=== PATIENT | female | born 1955 | race Caucasian/White ===

== ENCOUNTER 2016-11-27 07:02 | Inpatient (IN) | payer OTHER ==
--- NOTE | 2016-11-27 07:21 | ED PDOC ---
HPI: General Adult Time Seen by Provider: 11/27/16 07:09 Chief Complaint (Provider): neck pain History Per: Patient History/Exam Limitations: no limitations Additional Complaint(s): 61yo female comes in for complaint of persistent neck and lower back pain. It has been ongoing but has not been controlled through outpatient care. No abdominal pain, nausea, vomit, diarrhea, incontinence, numbness or tingling. Patient was seen by Dr. Sanchez & Dr. Law and referred here for further evaluation. PMD: Laura Past Medical History Reviewed: Historical Data, Nursing Documentation, Vital Signs Vital Signs: Last Vital Signs Temp 98.0 F 11/27/16 07:10 Pulse 76 11/27/16 07:10 Resp 18 11/27/16 07:10 BP 138/88 11/27/16 07:10 Pulse Ox 96 11/27/16 08:53 - Medical History PMH: HTN, Hypercholesterolemia - Surgical History Other surgeries: thyroidectomy, knee replacement - Family History Family History: States: Unknown Family Hx - Living Arrangements Living Arrangements: With Family - Social History Alcohol: None Drugs: Denies - Home Medications Home Medications: Ambulatory Orders Medication Instructions Recorded Ergocalciferol (Vitamin D2) 50,000 units PO QWK 11/27/16 [Vitamin D2] Levothyroxine [Synthroid] 125 mcg PO DAILY 11/27/16 Metformin ER [Glucophage XR] 500 mg PO BID 11/27/16 Metoprolol Tartrate [Lopressor] 100 mg PO DAILY 11/27/16 Watson-3 Fatty Acids/Fish Oil 1 g PO DAILY 11/27/16 [Watson 3 Fish Oil Softgel] Pantoprazole [Protonix EC Tab] 40 mg PO DAILY 11/27/16 Rosuvastatin Calcium [Crestor] 10 mg PO HS 11/27/16 Topiramate [Topamax] 50 mg PO BID 11/27/16 Valsartan/Hydrochlorothiazide 1 tab PO DAILY 11/27/16 [Valsartan-Hctz 160-12.5 mg Tab] - Allergies Allergies/Adverse Reactions: Allergies Allergy/AdvReac Type Severity Reaction Status Date / Time No Known Allergies Allergy Verified 11/27/16 07:22 Review of Systems ROS Statement: Except As Marked, All Systems Reviewed And Found Negative Gastrointestinal: Negative for: Nausea, Vomiting, Abdominal Pain, Diarrhea Genitourinary Female: Negative for: Incontinence Musculoskeletal: Positive for: Neck Pain, Back Pain Neurological: Negative for: Weakness, Numbness Physical Exam - Reviewed Nursing Documentation Reviewed: Yes Vital Signs Reviewed: Yes - Physical Exam Appears: Positive for: Non-toxic, No Acute Distress Head Exam: Positive for: ATRAUMATIC, NORMAL INSPECTION, NORMOCEPHALIC Skin: Positive for: Warm, Dry Eye Exam: Positive for: EOMI, PERRL Neck: Positive for: Painless ROM (tender on diffuse neck mild; no step off), Supple, Trachea Midline Cardiovascular/Chest: Positive for: Regular Rate, Rhythm Respiratory: Positive for: Normal Breath Sounds. Negative for: Rales, Rhonchi, Wheezing Gastrointestinal/Abdominal: Positive for: Normal Exam, Bowel Sounds, Soft. Negative for: Tenderness Back: Positive for: Other (mild tenderness across lower back). Negative for: L CVA Tenderness, R CVA Tenderness Extremity: Positive for: Normal ROM. Negative for: Tenderness, Pedal Edema, Other (bilateral straight leg raise) Neurologic/Psych: Positive for: Alert, Oriented - Laboratory Results Result Diagrams: 11/27/16 07:54 11/27/16 07:54 Interpretation Of Abn Labs: 3.1 k - ECG ECG: Positive for: Interpreted By Me, Viewed By Me ECG Rhythm: Positive for: Normal QRS, Normal ST Segment, Sinus Rhythm O2 Sat by Pulse Oximetry: 96 (RA) Pulse Ox Interpretation: Normal - Radiology X-Ray: Interpreted by Me, Viewed By Me X-Ray Interpretation: No Acute Disease - Progress ED Course And Treament: 0707: EKG, CXR, Labs, IV Fluids, Toradol ordered. Will discuss with Dr. Sanchez PMD. 0709: Case discussed with Dr. Sanchez PMD who accepts patient. 0742: Case discussed with Dr. Law who requests MRI neck. 757: Stable. Spoke with Dr. Sanchez. Will admit to his service for for further evaluation and treatment. Spoke with Dr. Law. Will consult on pt. Pain controlled. Dr. Law wants mri of cervical. Dr. Sanchez will give further orders when pt. reaches floor. Disposition - Clinical Impression Clinical Impression: Neck pain, Back pain, Hypokalemia - Patient ED Disposition Is Patient to be Admitted: Yes Counseled Patient/Family Regarding: Studies Performed, Diagnosis - Disposition Disposition Time: 07:09 Condition: STABLE - Pt Status Changed To: Hospital Disposition Of: Inpatient - Admit Certification Admit to Inpatient:: After my assessment, the patient will require hospitalization for at least two midnights. This is because of the severity of symptoms shown, intensity of services needed, and/or the medical risk in this patient being treated as an outpatient. - POA Present On Arrival: None Additional Comments - Additional Comments Additional Comments: Documented by Man Worthy acting as a scribe for Blair Robles MD. All medical record entries made by the Scribe were at my direction and personally dictated by me. I have reviewed the chart and agree that the record accurately reflects my personal performance of the history, physical exam, medical decision making, and the department course for this patient. I have also personally directed, reviewed, and agree with the discharge instructions and disposition.
[2016-11-27] MEDS ORDERED: Sodium Chloride 0.9% 500 ML IV STA (07:23)
[2016-11-27 08:10] LABS: BASO % 0.5 % (0.0-2.0); EOS # 0.3 K/uL (0.0-0.7); LYMPH # 2.8 K/uL (1.0-4.3); LYMPH % 40.3 % (20.0-40.0); MEAN CELL VOLUME 88.4 fl (81.0-99.0); MEAN CORPUSCULAR HEMOGLOBIN 31.1 pg (27.0-31.0); MEAN CORPUSCULAR HGB CONC 35.1 g/dL (33.0-37.0); MONO # 0.5 K/uL (0.0-0.8); MONO % 7.1 % (0.0-10.0); NEUT # 3.3 K/uL (1.8-7.0); NEUT % 48.1 % (50.0-75.0); RED CELL DISTRIBUTION WIDTH 12.4 % (11.5-14.5); WHITE BLOOD COUNT 6.8 K/uL (4.8-10.8)
[2016-11-27 08:13] LABS: ALB/GLOB RATIO 1.1 (1.0-2.1); ALKALINE PHOSPHATASE 46 U/L (38-126); ALT/SGPT 24 U/L (9-52); AST/SGOT 24 U/L (14-36); BILIRUBIN,TOTAL 0.5 mg/dl (0.2-1.3); BLOOD UREA NITROGEN 18 mg/dl (7-17); CALCIUM 8.9 mg/dL (8.4-10.2); CARBON DIOXIDE 25 mmol/L (22-30); CHLORIDE 101 mmol/L (98-107); GFR AFRICAN-AMERICAN > 60; GLUCOSE,RANDOM 203 mg/dL (65-105); POTASSIUM 3.1 MMOL/L (3.6-5.0); SODIUM 143 mmol/l (132-148); TOTAL PROTEIN 7.4 G/DL (6.3-8.2)
[2016-11-27] MEDS ORDERED: Potassium Chloride 20 mEq ER Tab PO STA (08:59)
--- NOTE | 2016-11-27 10:01 | MRI ---
PROCEDURE: MR CERVICAL SPINE WITHOUT CONTRAST HISTORY: neck pain COMPARISON: None available. TECHNIQUE: Multiecho multiplanar sequences were performed through the cervical spine without the use of intravenous contrast. FINDINGS: Normal lordotic curvature. Craniocervical junction unremarkable. Vertebral body heights preserved. No marrow signal abnormality. There are moderate degenerative disc changes and cervical spine spondylosis more prominent at C3-C4 and C4-C5. Multilevel osteophyte disc bulging/herniation complex seen at the cervical spine. Normal cervical cord. No paraspinal abnormality. C2-C3: No disc herniation, spinal canal stenosis or neural foraminal narrowing. C3-C4: There is a small right paracentral osteophyte disc bulging complex associated with mild spinal and cgab-vf-[id number] right neural foraminal narrowing. C4-C5: Small osteophyte disc bulging complex associated with mild posterior ligament hypertrophy which resulting in mild spinal and ldwc-zq-sbisseaf bilateral neural foraminal narrowing. C5-C6: Xcao-br-pnxrwqkw narrowing of the intervertebral disc space. Osteophyte disc bulging complex associated with posterior ligament and facet joint hypertrophy which resulting in oril-on-efemgjcw spinal and moderate bilateral neural foraminal narrowing right more than left. C6-C7: Small osteophyte disc bulging complex associated with mild posterior ligament hypertrophy which resulting in mild spinal and right neural foraminal narrowing. Subz-rv-diakvxhi left neural foraminal narrowing also seen. C7-T1: No disc herniation, spinal canal stenosis or neural foraminal narrowing. OTHER FINDINGS: None. IMPRESSION: Moderate degenerative disc changes and cervical spine spondylosis more prominent at C4-C5 and C5-C6. Multilevel osteophyte disc bulging complex associated with posterior ligament hypertrophy which resulting in spinal and neural foramina stenosis more prominent at C5-C6 as described. No evidence of cervical cord compression. No evidence of acute fracture or subluxation.
[2016-11-27] MEDS ORDERED: Ergocalciferol 50,000 Intl Units Cap PO SCH (10:45)
[2016-11-27 11:35] VITALS: BMI 39.4
[2016-11-27] MEDS: Potassium Chloride 20 mEq ER Tab PO SCH (12:18)
[2016-11-27 12:34] LABS: PARTIAL THROMBOPLASTIN TIME 23.8 SECONDS (23.3-32.5)
--- NOTE | 2016-11-27 13:17 | CP.PCM.HP ---
History of Present Illness - History of Present Illness History of Present Illness: Pt is a 61y/o female presenting to ed wit complaints of lower back pain and neck pain. states her PCP and her neurosurgeon have already evaluated her and sent her to ED for further management. this is a chronic issue that has not been controlled through outpatient care. No abdominal pain, nausea, vomit, diarrhea, incontinence, numbness or tingling. Present on Admission - Present on Admission Any Indicators Present on Admission: No Review of Systems - Review of Systems All systems: reviewed and no additional remarkable complaints except Review of Systems: per HPI Past Patient History - Past Medical History & Family History Past Medical History?: Yes - Past Social History Smoking Status: Never Smoked - CARDIAC Hx Cardiac Disorders: No - PULMONARY Hx Respiratory Disorders: No - NEUROLOGICAL Hx Neurological Disorder: No - HEENT Hx HEENT Problems: No - RENAL Hx Chronic Kidney Disease: No - ENDOCRINE/METABOLIC Hx Endocrine Disorders: Yes Other/Comment: borderline DM - HEMATOLOGICAL/ONCOLOGICAL Hx Blood Disorders: No - INTEGUMENTARY Hx Dermatological Problems: No - MUSCULOSKELETAL/RHEUMATOLOGICAL Hx Musculoskeletal Disorders: Yes Hx Back Pain: Yes Hx Falls: No Other/Comment: 2 shoulder surgeries and lumbar laminectomy with fusion - GASTROINTESTINAL Hx Gastrointestinal Disorders: Yes Hx Bowel Surgery: Yes Other/Comment: bowel resection - GENITOURINARY/GYNECOLOGICAL Hx Genitourinary Disorders: Yes - PSYCHIATRIC Hx Substance Use: No - SURGICAL HISTORY Hx Surgeries: Yes Hx Section: Yes Hx Cholecystectomy: Yes Hx Joint Replacement: Yes (left knee total replacement) Hx Thyroidectomy: Yes - ANESTHESIA Hx Anesthesia: Yes Hx Anesthesia Reactions: Yes Hx Malignant Hyperthermia: No Meds Allergies/Adverse Reactions: Allergies Allergy/AdvReac Type Severity Reaction Status Date / Time No Known Allergies Allergy Verified 11/27/16 11:33 Physical Exam - Constitutional Appears: Non-toxic, No Acute Distress - Head Exam Head Exam: NORMOCEPHALIC - Eye Exam Eye Exam: Normal appearance, PERRL Pupil Exam: NORMAL ACCOMODATION - ENT Exam ENT Exam: Mucous Membranes Moist - Neck Exam Additional comments: tenderness on palpation bilaterally, no step offs. ROM limited due to pain - Respiratory Exam Respiratory Exam: Clear to Auscultation Bilateral, NORMAL BREATHING PATTERN. absent: Rhonchi, Wheezes - Cardiovascular Exam Cardiovascular Exam: REGULAR RHYTHM, +S1, +S2 - GI/Abdominal Exam GI & Abdominal Exam: Normal Bowel Sounds, Soft. absent: Tenderness - Extremities Exam Extremities exam: Negative for: calf tenderness, pedal edema - Back Exam Back exam: muscle spasm, tenderness - Neurological Exam Neurological exam: Alert, CN II-XII Intact, Oriented x3 Results - Vital Signs Recent Vital Signs: Last Vital Signs Temp 98.0 F 11/27/16 09:24 Pulse 64 11/27/16 09:30 Resp 20 11/27/16 09:30 BP 138/88 11/27/16 09:24 Pulse Ox 96 11/27/16 09:00 - Labs Result Diagrams: 11/27/16 07:54 11/27/16 07:54 Labs: Laboratory Results - last 24 hr 11/27/16 11/27/16 07:54 11:30 WBC 6.8 RBC 4.41 Hgb 13.7 Hct 39.0 MCV 88.4 MCH 31.1 H MCHC 35.1 RDW 12.4 Plt Count 244 MPV 8.0 Neut % (Auto) 48.1 L Lymph % (Auto) 40.3 H [place] % (Auto) 7.1 Eos % (Auto) 4.0 Baso % (Auto) 0.5 Neut # 3.3 Lymph # 2.8 [place] # 0.5 Eos # 0.3 Baso # 0.0 PT 10.4 INR 1.00 APTT 23.8 Sodium 143 Potassium 3.1 L Chloride 101 Carbon Dioxide 25 Anion Gap 20 BUN 18 H Creatinine 0.6 L Est GFR ( Amer) > 60 Est GFR (Non-Af Amer) > 60 Random Glucose 203 H Calcium 8.9 Total Bilirubin 0.5 AST 24 ALT 24 Alkaline Phosphatase 46 Troponin I < 0.0120 Total Protein 7.4 Albumin 3.9 Globulin 3.4 Albumin/Globulin Ratio 1.1 Blood Type A POSITIVE Antibody Screen Negative BBK History Checked No verified bt Assessment & Plan - Assessment and Plan (Free Text) Assessment: Pt is a 61 y/o non insulin dependent type II diabetic, hypertensive, hypercholestelemia and hypothyroidism admitted for cervical spondylosis and lower back pain Plan: Cervical Spondylosis of c3-c4 and c4-c5 MRI- shows evidence of spondylosis and disc bulging Dr. Law made aware pt has been admitted, following pain managment as ordered Possible OR in the AM 2. lower back pain no associated radiculopathy pain managment as ordered Physical therapy after cervical surgery 3. Type II non insulin dependent diabetes Metformin accuchecks ssi as needed Hypokalemia received 40meg in ED and 20 on floor BMP ordered for am monitor 4. all home meds resumed 5. diet- hearty healthy now, NPO at midnight 6. DVt prophylaxis- SCDS
--- NOTE | 2016-11-27 14:08 | CARD ---
APPROVED REPORT EKG Measurement Heart [id number] <Conclusion> Sinus rhythm with 1st degree AV block Otherwise normal ECG
--- NOTE | 2016-11-27 14:21 | RAD ---
HISTORY: Dyspnea. Technique: Single view portable erect @ 07:35 COMPARISON: Send 03/30/2014. FINDINGS: LUNGS: No active pulmonary disease. PLEURA: No significant pleural effusion identified, no pneumothorax apparent. CARDIOVASCULAR: No radiographic findings to suggest acute or significant cardiovascular disease. OSSEOUS STRUCTURES: No significant abnormalities. VISUALIZED UPPER ABDOMEN: Normal. OTHER FINDINGS: None. IMPRESSION: No active disease. No significant interval change compared to the prior examination(s).
[2016-11-27] MEDS ORDERED: Dextrose 50% SYRINGE Inj (50 ml) IV PRN (14:30)
[2016-11-27] MEDS ORDERED: Glucagon Recombinant 1 mg Inj IM PRN (14:30)
[2016-11-27] MEDS: Insulin Regular 100 units/ml SC SCH ×2 (18:13→22:20)
[2016-11-28] MEDS ORDERED: Propofol 10 mg/ml Inj (20 ML) ONE ×2 (07:00→08:21)
[2016-11-28] MEDS ORDERED: Midazolam 2 MG/2 ML VIAL ONE (07:01)
[2016-11-28] MEDS ORDERED: ePHEDrine 50 mg/ml Inj ONE (07:01)
[2016-11-28] MEDS ORDERED: Phenylephrine 10 mg/ml Inj ONE (07:02)
[2016-11-28] MEDS ORDERED: Rocuronium 10 mg/ml (5 ml) ONE (07:02)
[2016-11-28] MEDS ORDERED: Succinylcholine 200 mg/10 ml Inj IV ONE (07:02)
[2016-11-28] MEDS ORDERED: Thrombin Topical 5,000 IU Spray Kit ONE (07:05)
[2016-11-28] MEDS ORDERED: Absorbable Gelatin Sponge Size 12-7 ONE (07:05)
--- NOTE | 2016-11-28 07:39 | CP.PCM.CON ---
History of Present Illness - History of Present Illness History of Present Illness: asked to see this 61 yo left hand dominant female pt with intractable neckpain ,ongoing x 7 years s/p slip and fall on ice, worsening symptoms with BUE radiation and paresthesias,dropping objects,no relief with pain meds or conservative management,outpt w/u showing cervical spondylosis and HNP,hx lumbar laminectomy and fusion in past with resolution of symptoms,surgical and non surgical options discussed with pt and Dr. Law,denies recent fall or trauma ,bowel/bladder incontinance or pelvic paresthesias. Review of Systems - Review of Systems Systems not reviewed;Unavailable: Acuity of Condition - Cardiovascular Additional comments: Hx Htn and HLD,denies PR or CP - Musculoskeletal Musculoskeletal: Neck Pain, Numbness, Radiating Pain into Limb, Tingling - Integumentary Additional comments: healed surgical scar - Neurological Neurological: As Per HPI - Endocrine Additional Comments: hx thyroidectomy Past Patient History - Infectious Disease Hx of Infectious Diseases: None - Tetanus Immunizations Tetanus Immunization: Unknown - Past Medical History & Family History Past Medical History?: Yes - Past Social History Smoking Status: Never Smoked Chewing Tobacco Use: No Cigar Use: No 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 Alcohol: Occasional Drugs: Denies Home Situation {Lives}: With Family Domestic Violence: Negative - CARDIAC Hx Cardiac Disorders: No - PULMONARY Hx Respiratory Disorders: No - NEUROLOGICAL Hx Neurological Disorder: No - HEENT Hx HEENT Problems: No - RENAL Hx Chronic Kidney Disease: No - ENDOCRINE/METABOLIC Hx Endocrine Disorders: Yes Other/Comment: borderline DM - HEMATOLOGICAL/ONCOLOGICAL Hx Blood Disorders: No - INTEGUMENTARY Hx Dermatological Problems: No - MUSCULOSKELETAL/RHEUMATOLOGICAL Hx Musculoskeletal Disorders: Yes Hx Back Pain: Yes Hx Falls: No Other/Comment: 2 shoulder surgeries and lumbar laminectomy with fusion - GASTROINTESTINAL Hx Gastrointestinal Disorders: Yes Hx Bowel Surgery: Yes Other/Comment: bowel resection - GENITOURINARY/GYNECOLOGICAL Hx Genitourinary Disorders: Yes - PSYCHIATRIC Hx Substance Use: No - SURGICAL HISTORY Hx Surgeries: Yes Hx Section: Yes Hx Cholecystectomy: Yes Hx Joint Replacement: Yes (left knee total replacement) Hx Thyroidectomy: Yes - ANESTHESIA Hx Anesthesia: Yes Hx Anesthesia Reactions: Yes Hx Malignant Hyperthermia: No Meds Allergies/Adverse Reactions: Allergies Allergy/AdvReac Type Severity Reaction Status Date / Time No Known Allergies Allergy Verified 11/27/16 11:33 - Medications Medications: Current Medications Atorvastatin Calcium (Lipitor) 20 mg PO HS [facility] Last Admin: 11/27/16 21:48 Dose: 20 mg Dextrose (Glutose 15) 0 gm PO ONCE PRN; Protocol PRN Reason: Hypoglycemia Protocol Dextrose (Dextrose 50% Inj) 0 ml IV STAT PRN; Protocol PRN Reason: Hyglycemia Protocol Ergocalciferol (Drisdol 50,000 Intl Units Cap) 1 cap PO Tu [facility] Last Admin: 11/27/16 12:18 Dose: 1 cap Glucagon (Glucagen Diagnostic Kit) 0 mg IM STAT PRN; Protocol PRN Reason: Hypoglycemia Protocol Hydrochlorothiazide (Microzide) 12.5 mg PO DAILY [facility] Insulin Human Regular (Humulin R) 0 units SC ACHS [facility] PRN Reason: Protocol Last Admin: 11/27/16 22:20 Dose: Not Given Ketorolac Tromethamine (Toradol) 10 mg PO Q6 PRN PRN Reason: Pain, Mild (1-3) Levothyroxine Sodium (Synthroid) 125 mcg PO 0630 [facility] Metformin HCl (Glucophage) 500 mg PO BIDWM [facility] Last Admin: 11/27/16 17:05 Dose: 500 mg Metoprolol Tartrate (Lopressor) 100 mg PO DAILY [facility] Eazsg-7-[id number] Ethyl Esters (Lovaza) 1 gm PO DAILY [facility] Oxycodone/Acetaminophen (Percocet 5/325 Mg Tab) 2 tab PO Q6 PRN PRN Reason: Pain, severe (8-10) Stop: 11/30/16 13:16 Oxycodone/Acetaminophen (Percocet 5/325 Mg Tab) 1 tab PO Q4 PRN PRN Reason: Pain, moderate (4-7) Stop: 11/30/16 13:16 Pantoprazole Sodium (Protonix Ec Tab) 40 mg PO DAILY [facility] Potassium Chloride (K-Dur 20 Meq Er Tab) 20 meq PO DAILY [facility] Last Admin: 11/27/16 12:18 Dose: 20 meq Topiramate (Topamax) 50 mg PO BID [facility] Last Admin: 11/27/16 17:06 Dose: 50 mg Valsartan (Diovan) 160 mg PO DAILY [facility] Physical Exam - Constitutional Appears: Well, Non-toxic, No Acute Distress - Head Exam Head Exam: ATRAUMATIC, NORMAL INSPECTION, NORMOCEPHALIC - Eye Exam Eye Exam: EOMI, Normal appearance, PERRL Pupil Exam: NORMAL ACCOMODATION - ENT Exam ENT Exam: Mucous Membranes Moist - Neck Exam Neck exam: Positive for: Tenderness - Respiratory Exam Respiratory Exam: Clear to Auscultation Bilateral - Cardiovascular Exam Cardiovascular Exam: REGULAR RHYTHM, +S1, +S2 - GI/Abdominal Exam GI & Abdominal Exam: Normal Bowel Sounds, Soft - Rectal Exam Rectal Exam: Deferred - Extremities Exam Extremities exam: Positive for: normal inspection, pedal pulses present - Back Exam Back exam: NORMAL INSPECTION - Neurological Exam Neurological exam: Alert, Oriented x3 Additional comments: [place] x 4 antigravity with deltoid,tricep and bicep weakness >left with paresthesias,+ 2 DTR's - Psychiatric Exam Psychiatric exam: Normal Affect, Normal Mood - Skin Skin Exam: Dry, Intact Results - Vital Signs Recent Vital Signs: Last Vital Signs Temp 97.8 F 11/28/16 05:00 Pulse 67 11/28/16 05:00 Resp 20 11/28/16 05:00 BP 119/74 11/28/16 05:00 Pulse Ox 97 11/28/16 05:00 - Labs Result Diagrams: 11/27/16 07:54 11/27/16 07:54 Labs: Laboratory Results - last 24 hr 11/27/16 11/27/16 11/27/16 07:54 11:30 15:15 WBC 6.8 RBC 4.41 Hgb 13.7 Hct 39.0 MCV 88.4 MCH 31.1 H MCHC 35.1 RDW 12.4 Plt Count 244 MPV 8.0 Neut % (Auto) 48.1 L Lymph % (Auto) 40.3 H [place] % (Auto) 7.1 Eos % (Auto) 4.0 Baso % (Auto) 0.5 Neut # 3.3 Lymph # 2.8 [place] # 0.5 Eos # 0.3 Baso # 0.0 PT 10.4 INR 1.00 APTT 23.8 Sodium 143 Potassium 3.1 L Chloride 101 Carbon Dioxide 25 Anion Gap 20 BUN 18 H Creatinine 0.6 L Est GFR ( Amer) > 60 Est GFR (Non-Af Amer) > 60 POC Glucose (mg/dL) Random Glucose 203 H Calcium 8.9 Total Bilirubin 0.5 AST 24 ALT 24 Alkaline Phosphatase 46 Troponin I < 0.0120 Total Protein 7.4 Albumin 3.9 Globulin 3.4 Albumin/Globulin Ratio 1.1 Blood Type A POSITIVE Blood Type Confirm A POSITIVE Antibody Screen Negative BBK History Checked No verified bt 11/27/16 11/27/16 11/28/16 16:34 21:33 06:56 WBC RBC Hgb Hct MCV MCH MCHC RDW Plt Count MPV Neut % (Auto) Lymph % (Auto) [place] % (Auto) Eos % (Auto) Baso % (Auto) Neut # Lymph # [place] # Eos # Baso # PT INR APTT Sodium Potassium Chloride Carbon Dioxide Anion Gap BUN Creatinine Est GFR ( Amer) Est GFR (Non-Af Amer) POC Glucose (mg/dL) 149 H 87 115 H Random Glucose Calcium Total Bilirubin AST ALT Alkaline Phosphatase Troponin I Total Protein Albumin Globulin Albumin/Globulin Ratio Blood Type Blood Type Confirm Antibody Screen BBK History Checked - Impressions Impression: images reviewed by Assessment & Plan - Assessment and Plan (Free Text) Assessment: 61 yo female with cervical spondylosis/HNP and myelopathy. Plan: again surgical and non surgical options discussed with pt,due to worsening symptoms and intractable pain,pt wishes to proceed with a proposed ACDF C4-5,C5- [address] Law,risks and benefits of surgery discussed with pt,expressed understanding and wishes to proceed.
[2016-11-28] MEDS ORDERED: Lactated Ringer's 1,000 ML IV ONE ×2 (07:50→08:00)
[2016-11-28] MEDS ORDERED: HEMOSTATIC MATRIX 10 ML DIS.NEEDLE TOP ONE ×2 (08:40→08:45)
[2016-11-28] MEDS ORDERED: Neostigmine Methylsulfate 2 MG/2 ML ML IV ONE (08:46)
[2016-11-28] MEDS ORDERED: Neostigmine Methylsulfate 3mg/3ml Syringe IV ONE (08:46)
[2016-11-28] MEDS ORDERED: Sodium Chloride 0.9% 1,000 ML IV ONE (09:27)
[2016-11-28] MEDS ORDERED: HYDROmorphone 0.5 mg/0.5 ml ISec ONE (09:33)
[2016-11-28] MEDS ORDERED: DiphenhydrAMINE 50 mg/ml Inj IVP PRN (09:34)
[2016-11-28] MEDS ORDERED: HYDROmorphone 0.5 mg/0.5 ml ISec IVP PRN (09:34)
--- NOTE | 2016-11-28 11:06 | CP.PCM.PN ---
Subjective - Date & Time of Evaluation Date of Evaluation: 11/28/16 Time of Evaluation: 10:35 - Subjective Subjective: pt seen and examined today at PACU with Dr. Sanchez, pt does not have any complaints, pain is controlled. doing well post surgery Objective - Vital Signs/Intake and Output Vital Signs (last 24 hours): Temp Pulse Resp BP Pulse Ox 97.8 F 67 20 119/74 97 11/28/16 05:00 11/28/16 05:00 11/28/16 05:00 11/28/16 05:00 11/28/16 05:00 Intake and Output: 11/28/16 11/28/16 06:59 18:59 Intake Total 1200 Balance 1200 - Medications Medications: Current Medications Atorvastatin Calcium (Lipitor) 20 mg PO HS [facility] Last Admin: 11/27/16 21:48 Dose: 20 mg Cyclobenzaprine HCl (Flexeril) 10 mg PO TID PRN PRN Reason: Muscle spasm Dextrose (Glutose 15) 0 gm PO ONCE PRN; Protocol PRN Reason: Hypoglycemia Protocol Dextrose (Dextrose 50% Inj) 0 ml IV STAT PRN; Protocol PRN Reason: Hyglycemia Protocol Diphenhydramine HCl (Benadryl) 25 mg IVP Q6 PRN PRN Reason: Itching / Pruritus Stop: 11/28/16 11:35 Ergocalciferol (Drisdol 50,000 Intl Units Cap) 1 cap PO Tu [facility] Last Admin: 11/27/16 12:18 Dose: 1 cap Glucagon (Glucagen Diagnostic Kit) 0 mg IM STAT PRN; Protocol PRN Reason: Hypoglycemia Protocol Hydrochlorothiazide (Microzide) 12.5 mg PO DAILY [facility] Hydromorphone HCl (Dilaudid) 0.5 mg IVP Q10M PRN PRN Reason: Pain, severe (8-10) Stop: 11/28/16 11:35 Cefazolin Sodium 1 gm/ Sodium (Chloride) 100 mls @ 100 mls/hr IVPB Q12 [facility] Insulin Human Regular (Humulin R) 0 units SC ACHS INOCENCIA PRN Reason: Protocol Last Admin: 11/27/16 22:20 Dose: Not Given Ketorolac Tromethamine (Toradol) 10 mg PO Q6 PRN PRN Reason: Pain, Mild (1-3) Levothyroxine Sodium (Synthroid) 125 mcg PO 0630 [facility] Metformin HCl (Glucophage) 500 mg PO BIDWM [facility] Last Admin: 11/27/16 17:05 Dose: 500 mg Metoprolol Tartrate (Lopressor) 100 mg PO DAILY [facility] Orkmp-0-Xrac Ethyl Esters (Lovaza) 1 gm PO DAILY [facility] Ondansetron HCl (Zofran Inj) 4 mg IVP ONCE PRN PRN Reason: Nausea/Vomiting Stop: 11/28/16 11:35 Oxycodone/Acetaminophen (Percocet 5/325 Mg Tab) 2 tab PO Q6 PRN PRN Reason: Pain, severe (8-10) Stop: 11/30/16 13:16 Oxycodone/Acetaminophen (Percocet 5/325 Mg Tab) 1 tab PO Q4 PRN PRN Reason: Pain, moderate (4-7) Stop: 11/30/16 13:16 Pantoprazole Sodium (Protonix Ec Tab) 40 mg PO DAILY [facility] Potassium Chloride (K-Dur 20 Meq Er Tab) 20 meq PO DAILY [facility] Last Admin: 11/27/16 12:18 Dose: 20 meq Topiramate (Topamax) 50 mg PO BID [facility] Last Admin: 11/27/16 17:06 Dose: 50 mg Valsartan (Diovan) 160 mg PO DAILY [facility] - Labs Labs: 11/27/16 07:54 11/27/16 07:54 PT 10.4 SECONDS (9.6-11.2) 11/27/16 11:30 INR 1.00 (0.92-1.08) 11/27/16 11:30 APTT 23.8 SECONDS (23.3-32.5) 11/27/16 11:30 - Constitutional Appears: Non-toxic, No Acute Distress - Head Exam Head Exam: NORMOCEPHALIC - Eye Exam Eye Exam: Normal appearance Pupil Exam: NORMAL ACCOMODATION - ENT Exam ENT Exam: Mucous Membranes Moist - Neck Exam Additional comments: drains noted, neck in collar - Respiratory Exam Respiratory Exam: Clear to Ausculation Bilateral, NORMAL BREATHING PATTERN. absent: Rhonchi, Wheezes - Cardiovascular Exam Cardiovascular Exam: REGULAR RHYTHM, +S1, +S2 - GI/Abdominal Exam GI & Abdominal Exam: Soft, Normal Bowel Sounds. absent: Tenderness - Extremities Exam Extremities Exam: absent: Calf Tenderness, Pedal Edema - Neurological Exam Neurological Exam: Alert, Awake, CN II-XII Intact, Oriented x3 Assessment and Plan - Assessment and Plan (Free Text) Assessment: Pt is a 61 y/o non insulin dependent type II diabetic, hypertensive, hypercholestelemia and hypothyroidism admitted for cervical spondylosis and lower back pain Plan: Cervical Spondylosis of c3-c4 and c4-c5 MRI- shows evidence of spondylosis and disc bulging Dr. Law made aware pt has been admitted, following pain managment as ordered Possible OR in the AM 2. lower back pain no associated radiculopathy pain managment as ordered Physical therapy after cervical surgery 3. Type II non insulin dependent diabetes Metformin accuchecks ssi as needed Hypokalemia received 40meg in ED and 20 on floor BMP ordered for am monitor 4. all home meds resumed 5. diet- hearty healthy now, NPO at midnight 6. DVt prophylaxis- SCDS Plan: Cervical Spondylosis s/p ACDF of c3-c4 and c4-c5 POD#0 pain managment as ordered Ancef Q12 Steriod taper PT eval and treat 2. lower back pain no associated radiculopathy pain managment as ordered Physical therapy after cervical surgery 3. Type II non insulin dependent diabetes Metformin accuchecks ssi as needed Hypokalemia received 40meg in ED and 20 on floor BMP ordered for am monitor 4. all home meds resumed 5. diet- clear liquid for lunch, will progress as tolerated 6. DVt prophylaxis- SCDS, lovenox to start in the AM
[2016-11-28] MEDS ORDERED: Lactated Ringer's 1,000 ML IV SCH (15:45)
[2016-11-28] MEDS: Oxycodone/Acetaminophen 5/325 mg Tab PO PRN ×2 (17:54→23:33)
[2016-11-28] MEDS: Insulin Regular 100 units/ml SC SCH ×2 (18:58→22:00)
[2016-11-28] MEDS ORDERED: Pneumococcal 23-Valent Vaccine IM ONE (19:30)
[2016-11-28] MEDS: Benzocaine/Menthol (Cepacol) Lozenge PO PRN (20:59)
[2016-11-28] MEDS: ceFAZolin 1 GM in Sodium Chloride 0.9% 100 ML IVPB SCH (21:00)
[2016-11-29] MEDS: Levothyroxine 125 MCG TAB PO SCH (05:46)
[2016-11-29] MEDS: Oxycodone/Acetaminophen 5/325 mg Tab PO PRN ×3 (05:59→21:03)
[2016-11-29] MEDS: Insulin Regular 100 units/ml SC SCH ×4 (06:42→22:00)
[2016-11-29 07:52] LABS: BASO % 0.5 % (0.0-2.0); EOS # 0.3 K/uL (0.0-0.7); EOS % 2.8 % (0.0-4.0); HEMATOCRIT 36.9 % (34.0-47.0); LYMPH % 21.6 % (20.0-40.0); MEAN CELL VOLUME 90.3 fl (81.0-99.0); MEAN CORPUSCULAR HEMOGLOBIN 30.9 pg (27.0-31.0); MEAN CORPUSCULAR HGB CONC 34.2 g/dL (33.0-37.0); MONO # 0.7 K/uL (0.0-0.8); MONO % 7.9 % (0.0-10.0); NEUT # 6.2 K/uL (1.8-7.0); NEUT % 67.2 % (50.0-75.0); RED CELL DISTRIBUTION WIDTH 12.2 % (11.5-14.5); WHITE BLOOD COUNT 9.2 K/uL (4.8-10.8)
[2016-11-29 08:53] LABS: BLOOD UREA NITROGEN 11 mg/dl (7-17); CALCIUM 8.4 mg/dL (8.4-10.2); CARBON DIOXIDE 27 mmol/L (22-30); CHLORIDE 105 mmol/L (98-107); GFR AFRICAN-AMERICAN > 60; GLUCOSE,RANDOM 123 mg/dL (65-105); POTASSIUM 3.4 MMOL/L (3.6-5.0); SODIUM 142 mmol/l (132-148)
[2016-11-29] MEDS: Benzocaine/Menthol (Cepacol) Lozenge PO PRN ×3 (09:03→16:54)
--- NOTE | 2016-11-29 09:05 | OP ---
PROCEDURE DATE: 11/28/2016 PREOPERATIVE DIAGNOSIS: Cervical disk herniation and spondylosis at C4-C5, C5- C6. POSTOPERATIVE DIAGNOSES: Cervical disk herniation and spondylosis at C4-C5, C5- C6. PROCEDURE: Partial vertebrectomy of C4, C5 and C6; diskectomy of C4-C5, C5-C6; interbody fusion of C4-C5, C5-C6 using PEEK and bone; plating and instrumentation C4-C6 using an Amendia plate. Fluoroscopy has been used for the procedure. SURGEON: Dr. Law. BLACKSMITH ASSISTANT: RICHARD Fischer. Giovana Baldwin stayed throughout the case from the beginning to the end, helped me perform the surgery. DESCRIPTION OF PROCEDURE: The patient was brought to the operating room, administered general endotracheal anesthesia, placed in a supine position. Head was placed on a donut. Care was taken to protect all the pressure points. Right side of the neck was thoroughly prepped and draped in standard sterile manner after marking the skin incision for cervical vertebrectomy. After prepping and draping the area, horizontal skin incision in neck creases has been made. Bleeding skin edges have been controlled by bipolar sales engagement executive. Using a Bovie sales engagement executive, platysma has been cut. Dissection has been carried out at trachea and esophagus medially, sternomastoid carried out laterally. Prevertebral fascia has been cauterized and cut. Identification has been done with help of a fluoroscopy. Longus colli has been detached at attachment of vertebral bodies of C4, C5 and 6. Danek retractors have been applied. Rest of the operation had been carried out with microscope magnification and illumination. PARTIAL VERTEBRECTOMY OF C4, 5 AND 6; DISKECTOMY OF C4-C5, C5-C6: By using high -speed drill, the vertebral bodies of C4 and C5 have been drilled. Partial vertebrectomy, including removal of half of the vertebral body has been done. diskectomy has been performed. The disk material has been removed. There was an osteophyte noted that has been drilled. Posterior longitudinal ligament has been opened. Dura has been decompressed from side to side. At C5-6, the partial vertebrectomy, including removal of cartilage and plates, half of the vertebral body has been performed. Diskectomy was performed. There a herniated disk noted that has been removed. Posterior longitudinal ligament has been opened. Dura has been decompressed from side to side. INTERBODY FUSION OF C4-C5, C5-C6 USING PEEK AND BONE: Two pieces of PEEK implant have been brought in, filled with the demineralized bone. They have been gently tapped in the space created by the partial vertebrectomy at C4-C5, C5-C6. Position has been confirmed to be good. PLATING AND INSTRUMENTATION OF C4-C6 USING AMENDIA PLATE: An Amendia plate has been placed in vertebral bodies of C4-C6. By using 12 mm screw, it has been secured under fluoroscopic guided control. Position has been confirmed good. After that, hemostasis best achieved. Aime drain placed in the wound, brought out through separate stab skin incision. Platysma closed with 3-0 Vicryl, skin with intradermal 3-0 Vicryl stitches. The patient tolerated the procedure. After procedure, mobilized to the recovery room in stable neurologic condition. Wang Law MD cc: [phone] TT: 11/29/2016 09:05:13 kathryn CALLOWAY
[2016-11-29] MEDS: Pantoprazole 40 mg EC Tab PO SCH (09:08)
[2016-11-29] MEDS: Omega-3-Acid Ethyl Esters 1 GM Cap PO SCH (09:09)
[2016-11-29] MEDS: Potassium Chloride 20 mEq ER Tab PO SCH (09:10)
[2016-11-29] MEDS: ceFAZolin 1 GM in Sodium Chloride 0.9% 100 ML IVPB SCH ×2 (09:25→21:09)
--- NOTE | 2016-11-29 11:40 | CP.PCM.PN ---
Subjective - Date & Time of Evaluation Date of Evaluation: 11/29/16 Time of Evaluation: 10:00 - Subjective Subjective: Pt seen and evaluated at bedside this morning, doing well. pain controlled with current regime, will start physical therapy today. no complaints Objective - Vital Signs/Intake and Output Vital Signs (last 24 hours): Temp Pulse Resp BP Pulse Ox 98.7 F 91 H 18 106/72 96 11/29/16 08:06 11/29/16 09:13 11/29/16 08:06 11/29/16 09:13 11/29/16 08:06 - Medications Medications: Current Medications Atorvastatin Calcium (Lipitor) 20 mg PO HS [facility] Last Admin: 11/28/16 21:39 Dose: 20 mg Benzocaine/Menthol (Cepacol Sore Throat) 1 sakshi PO Q3 PRN PRN Reason: Sore Throat Last Admin: 11/29/16 09:03 Dose: 1 sakshi Cyclobenzaprine HCl (Flexeril) 10 mg PO TID PRN PRN Reason: Muscle spasm Last Admin: 11/29/16 09:12 Dose: 10 mg Dextrose (Glutose 15) 0 gm PO ONCE PRN; Protocol PRN Reason: Hypoglycemia Protocol Dextrose (Dextrose 50% Inj) 0 ml IV STAT PRN; Protocol PRN Reason: Hyglycemia Protocol Ergocalciferol (Drisdol 50,000 Intl Units Cap) 1 cap PO Tu [facility] Last Admin: 11/27/16 12:18 Dose: 1 cap Glucagon (Glucagen Diagnostic Kit) 0 mg IM STAT PRN; Protocol PRN Reason: Hypoglycemia Protocol Hydrochlorothiazide (Microzide) 12.5 mg PO DAILY [facility] Last Admin: 11/29/16 09:11 Dose: 12.5 mg Cefazolin Sodium 1 gm/ Sodium (Chloride) 100 mls @ 100 mls/hr IVPB Q12 [facility] Last Admin: 11/29/16 09:25 Dose: 100 mls/hr Insulin Human Regular (Humulin R) 0 units SC ACHS INOCENCIA PRN Reason: Protocol Last Admin: 11/29/16 06:42 Dose: Not Given Ketorolac Tromethamine (Toradol) 10 mg PO Q6 PRN PRN Reason: Pain, Mild (1-3) Levothyroxine Sodium (Synthroid) 125 mcg PO 0630 [facility] Last Admin: 11/29/16 05:46 Dose: 125 mcg Metformin HCl (Glucophage) 500 mg PO BIDWM [facility] Last Admin: 11/29/16 09:12 Dose: 500 mg Metoprolol Tartrate (Lopressor) 100 mg PO DAILY [facility] Last Admin: 11/29/16 09:13 Dose: 100 mg Blecu-3-Fnke Ethyl Esters (Lovaza) 1 gm PO DAILY [facility] Last Admin: 11/29/16 09:09 Dose: Not Given Oxycodone/Acetaminophen (Percocet 5/325 Mg Tab) 2 tab PO Q6 PRN PRN Reason: Pain, severe (8-10) Stop: 11/30/16 13:16 Last Admin: 11/28/16 23:33 Dose: 2 tab Oxycodone/Acetaminophen (Percocet 5/325 Mg Tab) 1 tab PO Q4 PRN PRN Reason: Pain, moderate (4-7) Stop: 11/30/16 13:16 Last Admin: 11/29/16 05:59 Dose: 1 tab Pantoprazole Sodium (Protonix Ec Tab) 40 mg PO DAILY [facility] Last Admin: 11/29/16 09:08 Dose: 40 mg Potassium Chloride (K-Dur 20 Meq Er Tab) 20 meq PO DAILY [facility] Last Admin: 11/29/16 09:10 Dose: 20 meq Topiramate (Topamax) 50 mg PO BID [facility] Last Admin: 11/29/16 09:08 Dose: 50 mg Valsartan (Diovan) 160 mg PO DAILY [facility] Last Admin: 11/29/16 09:11 Dose: 160 mg - Labs Labs: 11/29/16 06:20 11/29/16 08:15 PT 10.4 SECONDS (9.6-11.2) 11/27/16 11:30 INR 1.00 (0.92-1.08) 11/27/16 11:30 APTT 23.8 SECONDS (23.3-32.5) 11/27/16 11:30 - Constitutional Appears: Non-toxic, No Acute Distress - Head Exam Head Exam: NORMOCEPHALIC - Eye Exam Eye Exam: Normal appearance, PERRL - ENT Exam ENT Exam: Mucous Membranes Moist - Neck Exam Additional comments: drain removed, surgical site neatly dressed - Respiratory Exam Respiratory Exam: Clear to Ausculation Bilateral, NORMAL BREATHING PATTERN. absent: Rhonchi, Wheezes - Cardiovascular Exam Cardiovascular Exam: REGULAR RHYTHM, +S1, +S2 - GI/Abdominal Exam GI & Abdominal Exam: Soft, Normal Bowel Sounds. absent: Tenderness - Extremities Exam Extremities Exam: absent: Calf Tenderness - Neurological Exam Neurological Exam: Alert, Awake, CN II-XII Intact, Oriented x3 Assessment and Plan - Assessment and Plan (Free Text) Assessment: Pt is a 61 y/o non insulin dependent type II diabetic, hypertensive, hypercholestelemia and hypothyroidism admitted for cervical spondylosis and lower back pain POD#1 doing well Plan: Cervical Spondylosis s/p ACDF of c3-c4 and c4-c5 POD#1 pain managment as ordered Ancef Q12 Steriod taper PT eval and treat 2. lower back pain no associated radiculopathy pain managment as ordered Physical therapy after cervical surgery 3. Type II non insulin dependent diabetes Metformin accuchecks ssi as needed 4. Hypokalemia on daily Kdur monitor 5. all home meds resumed 6. diet-diabetic 7. DVt prophylaxis- lovenox
[2016-11-30 04:49] VITALS: O2SAT 95
[2016-11-30] MEDS: Benzocaine/Menthol (Cepacol) Lozenge PO PRN ×2 (05:57→14:18)
[2016-11-30] MEDS: Oxycodone/Acetaminophen 5/325 mg Tab PO PRN ×2 (05:58→09:27)
[2016-11-30] MEDS: Levothyroxine 125 MCG TAB PO SCH (05:59)
[2016-11-30] MEDS: Insulin Regular 100 units/ml SC SCH ×2 (06:57→13:21)
[2016-11-30 08:51] VITALS: RESP 18
[2016-11-30] MEDS ORDERED: Albuterol-Ipratrop 3 mg / 0.5 (3 ml) UD INH ONE (09:07)
[2016-11-30] MEDS: Omega-3-Acid Ethyl Esters 1 GM Cap PO SCH (09:31)
[2016-11-30] MEDS: Pantoprazole 40 mg EC Tab PO SCH (09:32)
[2016-11-30] MEDS: Potassium Chloride 20 mEq ER Tab PO SCH (09:33)
[2016-11-30] MEDS ORDERED: Levothyroxine 125 MCG TAB PO ONE (11:40)
--- NOTE | 2016-11-30 11:57 | CP.PCM.DIS ---
Provider - Provider Date of Admission: 11/27/16 07:44 Attending physician: Mio Sanchez MD Primary care physician: Laura Time Spent in preparation of Discharge (in minutes): 30 Diagnosis - Discharge Diagnosis (1) Cervical radiculopathy Status: Acute Hospital Course - Lab Results Lab Results: Most Recent Lab Values WBC 9.2 K/uL (4.8-10.8) 11/29/16 06:20 RBC 4.08 Mil/uL (3.80-5.20) 11/29/16 06:20 Hgb 12.6 g/dL (12.0-16.0) 11/29/16 06:20 Hct 36.9 % (34.0-47.0) 11/29/16 06:20 MCV 90.3 fl (81.0-99.0) 11/29/16 06:20 MCH 30.9 pg (27.0-31.0) 11/29/16 06:20 MCHC 34.2 g/dL (33.0-37.0) 11/29/16 06:20 RDW 12.2 % (11.5-14.5) 11/29/16 06:20 Plt Count 213 K/uL (130-400) 11/29/16 06:20 MPV 8.0 fl (7.2-11.7) 11/29/16 06:20 Neut % (Auto) 67.2 % (50.0-75.0) 11/29/16 06:20 Lymph % (Auto) 21.6 % (20.0-40.0) 11/29/16 06:20 Will % (Auto) 7.9 % (0.0-10.0) 11/29/16 06:20 Eos % (Auto) 2.8 % (0.0-4.0) 11/29/16 06:20 Baso % (Auto) 0.5 % (0.0-2.0) 11/29/16 06:20 Neut # 6.2 K/uL (1.8-7.0) 11/29/16 06:20 Lymph # 2.0 K/uL (1.0-4.3) 11/29/16 06:20 Will # 0.7 K/uL (0.0-0.8) 11/29/16 06:20 Eos # 0.3 K/uL (0.0-0.7) 11/29/16 06:20 Baso # 0.0 K/uL (0.0-0.2) 11/29/16 06:20 PT 10.4 SECONDS (9.6-11.2) 11/27/16 11:30 INR 1.00 (0.92-1.08) 11/27/16 11:30 APTT 23.8 SECONDS (23.3-32.5) 11/27/16 11:30 Sodium 142 mmol/l (132-148) 11/29/16 08:15 Potassium 3.4 MMOL/L (3.6-5.0) L 11/29/16 08:15 Chloride 105 mmol/L (98-107) 11/29/16 08:15 Carbon Dioxide 27 mmol/L (22-30) 11/29/16 08:15 Anion Gap 13 (10-20) 11/29/16 08:15 BUN 11 mg/dl (7-17) 11/29/16 08:15 Creatinine 0.6 mg/dL (0.7-1.2) L 11/29/16 08:15 Est GFR ( Amer) > 60 11/29/16 08:15 Est GFR (Non-Af Amer) > 60 11/29/16 08:15 POC Glucose (mg/dL) 131 mg/dL (65-110) H 11/30/16 05:31 Random Glucose 123 mg/dL (65-105) H 11/29/16 08:15 Calcium 8.4 mg/dL (8.4-10.2) 11/29/16 08:15 Total Bilirubin 0.5 mg/dl (0.2-1.3) 11/27/16 07:54 AST 24 U/L (14-36) 11/27/16 07:54 ALT 24 U/L (9-52) 11/27/16 07:54 Alkaline Phosphatase 46 U/L (38-126) 11/27/16 07:54 Troponin I < 0.0120 ng/mL (0.00-0.120) 11/27/16 07:54 Total Protein 7.4 G/DL (6.3-8.2) 11/27/16 07:54 Albumin 3.9 g/dL (3.5-5.0) 11/27/16 07:54 Globulin 3.4 gm/dL (2.2-3.9) 11/27/16 07:54 Albumin/Globulin Ratio 1.1 (1.0-2.1) 11/27/16 07:54 Blood Type A POSITIVE 11/27/16 11:30 Blood Type Confirm A POSITIVE 11/27/16 15:15 Antibody Screen Negative 11/27/16 11:30 BBK History Checked No verified bt 11/27/16 11:30 - Hospital Course Hospital Course: Pt was admitted for neck and back pain, work up indicated cervical verterbra level dx and was taken to OR, recovered as expected and is being discharged. Discharge Exam - Head Exam Head Exam: NORMOCEPHALIC - Eye Exam Eye Exam: Normal appearance - Respiratory Exam Respiratory Exam: NORMAL BREATHING PATTERN - Cardiovascular Exam Cardiovascular Exam: REGULAR RHYTHM, +S1, +S2 - GI/Abdominal Exam GI & Abdominal Exam: Normal Bowel Sounds - Extremities Exam Extremities exam: normal inspection - Neurological Exam Neurological exam: Alert, Oriented x3 Discharge Plan - Discharge Medications Prescriptions: Amoxicillin/Clavulanate [Augmentin 875 MG-125 MG] 1 tab PO BID #7 tab oxyCODONE/Acetaminophen [Percocet 5/325 mg Tab] 1 tab PO Q4 PRN #30 tab PRN Reason: Pain, Moderate (4-7) - Follow Up Plan Condition: STABLE Disposition: HOME/ ROUTINE Instructions: Metformin (By mouth), Acute Wound Care (GEN), Back Pain (GEN) Referrals: Wang Law MD [Staff Provider] -
[2016-11-30 14:16] LABS: BLOOD UREA NITROGEN 14 mg/dl (7-17); CALCIUM 9.2 mg/dL (8.4-10.2); CARBON DIOXIDE 28 mmol/L (22-30); CHLORIDE 101 mmol/L (98-107); GFR AFRICAN-AMERICAN > 60; GLUCOSE,RANDOM 128 mg/dL (65-105); POTASSIUM 3.7 MMOL/L (3.6-5.0); SODIUM 140 mmol/l (132-148)
[2016-11-30 15:05] VITALS: BP 107/70; PULSE 69; TEMP 97.8
--- NOTE | 2016-12-03 16:10 | RAD ---
Fluoroscopy dated 11/28/2016. History: ACDF. Single intraoperative lateral fluoroscopic view of the cervical spine demonstrates an in situ needle localizing C4-C5 disc space level. In situ endotracheal tube is present. Approximately 10.5 seconds of fluoroscopy time utilized. Radiation dose = 0.96 mGy Impression: Fluoroscopic guided localization of at aforementioned cervical disc space level as above. Please refer to operative report for additional details.
== END 2016-11-30 15:00 | disposition home or self-care (01) | DRG 472 ==
LOC: H.ER 07:02 → H.ERHOLD 07:44 → H.PEDS 09:30 → H.TEL 11-28 15:59
PROVIDERS: ADMIT Family Medicine; ATTEND Family Medicine
PROC: 0RB30ZZ Excision of Cervical Vertebral Disc, Open Approach (ICD-10-PCS; 2016-11-28)
PROC: 0RG20A0 Fusion of 2 or more Cervical Vertebral Joints with Interbody Fusion Device, Anterior Approach, Anterior Column, Open Approach (ICD-10-PCS; principal; 2016-11-28 07:45)
DX: M50.121 Cervical disc disorder at C4-C5 level with radiculopathy (principal); M47.12 Other spondylosis with myelopathy, cervical region; M50.022 Cervical disc disorder at C5-C6 level with myelopathy; I10 Essential (primary) hypertension; E87.6 Hypokalemia; E11.9 Type 2 diabetes mellitus without complications; E78.00 Pure hypercholesterolemia, unspecified; E89.0 Postprocedural hypothyroidism; Y83.9 Surgical procedure, unspecified as the cause of abnormal reaction of the patient, or of later complication, without mention of misadventure at the time of the procedure; Z79.4 Long term (current) use of insulin